=== PATIENT | female | born 1955 | race Caucasian/White ===

== ENCOUNTER → 2022-04-30 | Outpatient (CLI) | payer BC ==
[~2022-04-30] MED LIST: ISOVUE-370 76% 25ML SYRINGE As Ordered ONE
== END ==
LOC: M RAD 15:15
PROVIDERS: ATTEND Nurse Practitioner Family
DX: R07.9 Chest pain, unspecified (principal)
CPT/HCPCS: 71275; Q9967

== ENCOUNTER → 2022-06-24 | Outpatient (CLI) | payer BC, MEDICARE, SELFPAY ==
[2022-06-24 09:35] LABS: HEMATOCRIT 40.2 % (36.0-47.0); HEMOGLOBIN 13.8 g/dl (12.0-15.5); MEAN CORPUSCULAR HEMOGLOBIN 31.4 pg (27.0-33.0); MEAN CORPUSCULAR HGB CONC 34.3 g/dl (32.0-36.5); MEAN CORPUSCULAR VOLUME 91.6 fl (80.0-96.0); PLATELET COUNT, AUTOMATED 266 10^3/uL (150-450); RED BLOOD COUNT 4.39 10^6/uL (4.00-5.40); WHITE BLOOD COUNT 3.8 10^3/uL (4.0-10.0)
[2022-06-24 10:13] LABS: ALT/SGPT 22 U/L (12-78); BILIRUBIN,TOTAL 0.7 MG/DL (0.2-1.0); BLOOD UREA NITROGEN 10 MG/DL (7-18); CALCIUM LEVEL 10.1 MG/DL (8.8-10.2); CARBON DIOXIDE LEVEL 31 MEQ/L (21-32); CHLORIDE LEVEL 102 MEQ/L (98-107); CHOLESTEROL LEVEL 217 MG/DL (<200); CHOLESTEROL RISK RATIO 2.384 (<5); CREATININE FOR GFR 0.55 MG/DL (0.55-1.30); GLOMERULAR FILTRATION RATE > 60.0 (>45); GLUCOSE, FASTING 92 MG/DL (70-100); HDL CHOLESTEROL 91 MG/DL (>40); LDL CHOLESTEROL 112 MG/DL (<100); NON-HDL-C 126 MG/DL; POTASSIUM SERUM 4.6 MEQ/L (3.5-5.1); SODIUM LEVEL 137 MEQ/L (136-145); TOTAL PROTEIN 7.5 GM/DL (6.4-8.2); TRIGLYCERIDES LEVEL 70 MG/DL (<150)
== END ==
LOC: M LAB 08:51
PROVIDERS: ATTEND Nurse Practitioner Family
DX: E78.5 Hyperlipidemia, unspecified (principal); I10 Essential (primary) hypertension

== ENCOUNTER → 2022-07-02 | Outpatient (CLI) | payer MEDICARE | LOC: M WHC 14:21 | PROVIDERS: ATTEND Nurse Practitioner Family | DX: Z12.31 Encounter for screening mammogram for malignant neoplasm of breast (principal) ==

== ENCOUNTER → 2023-07-05 | Outpatient (CLI) | payer MEDICARE | LOC: M WHC 12:48 | PROVIDERS: ATTEND Nurse Practitioner Family | DX: Z12.31 Encounter for screening mammogram for malignant neoplasm of breast (principal); Z98.82 Breast implant status ==

== ENCOUNTER → 2023-08-11 | Outpatient (CLI) | payer MEDICARE | LOC: M WUC 09:28 | PROVIDERS: ATTEND Nurse Practitioner Family | DX: R05.1 Acute cough (principal) ==

== ENCOUNTER → 2024-04-26 | Outpatient (CLI) | payer MEDICARE | LOC: M WHC 14:22 | PROVIDERS: ATTEND Nurse Practitioner Family | DX: N63.15 Unspecified lump in the right breast, overlapping quadrants (principal); N63.21 Unspecified lump in the left breast, upper outer quadrant | CPT/HCPCS: 76642; 77066; G0279 ==

== ENCOUNTER → 2025-01-03 | Outpatient (CLI) | payer MEDICARE ==
[2025-01-03 11:15] LABS: BASO % 0.2 % (0.0-1.0); EOS # 0.1 10^3/uL (0.0-0.5); EOS % 1.3 % (0.0-3.0); HEMATOCRIT 39.5 % (36.0-47.0); HEMOGLOBIN 13.4 g/dl (12.0-15.5); LYMPH # 1.1 10^3/uL (1.5-5.0); LYMPH % 25.6 % (24.0-44.0); MEAN CORPUSCULAR HEMOGLOBIN 31.6 pg (27.0-33.0); MEAN CORPUSCULAR HGB CONC 33.9 g/dl (32.0-36.5); MEAN CORPUSCULAR VOLUME 93.2 fl (80.0-96.0); MONO # 0.6 10^3/uL (0.0-0.8); NEUTROPHILS # 2.7 10^3/uL (1.5-8.5); NEUTROPHILS % 59.7 % (36.0-66.0); PLATELET COUNT, AUTOMATED 210 10^3/uL (150-450); RED BLOOD COUNT 4.24 10^6/uL (4.00-5.40); WHITE BLOOD COUNT 4.5 10^3/uL (4.0-10.0)
[2025-01-03 11:54] LABS: CPK CREATINE PHOSPHOKINASE 60 U/L (34-145)
[2025-01-03 11:55] LABS: ALBUMIN 3.8 G/DL (3.2-5.2); ALKALINE PHOSPHATASE 73 U/L (35-104); ALT/SGPT 24 U/L (7.0-40); AST/SGOT 30 U/L (<34); BILIRUBIN,TOTAL 0.9 MG/DL (0.3-1.2); BLOOD UREA NITROGEN 13 MG/DL (9-23); CALCIUM LEVEL 9.4 MG/DL (8.3-10.6); CARBON DIOXIDE LEVEL 33 MMOL/L (20-31); CHLORIDE LEVEL 100 MMOL/L (98-107); CHOLESTEROL LEVEL 176 MG/DL (<200); CHOLESTEROL RISK RATIO 2.02 (<5); CREATININE FOR GFR 0.55 MG/DL (0.55-1.30); GLOMERULAR FILTRATION RATE > 90.0 (>45); GLUCOSE, FASTING 83 MG/DL (74-106); HDL CHOLESTEROL 87.1 MG/DL (>40); LDL CHOLESTEROL 81.5 MG/DL (<100); NON-HDL-C 88.9 MG/DL; POTASSIUM SERUM 4.1 MMOL/L (3.5-5.1); SODIUM LEVEL 143 MMOL/L (136-145); TOTAL PROTEIN 6.9 G/DL (5.7-8.2); TRIGLYCERIDES LEVEL 37 MG/DL (<150)
== END ==
LOC: M LAB 09:15
PROVIDERS: ATTEND Nurse Practitioner Family
DX: E78.5 Hyperlipidemia, unspecified (principal)

== ENCOUNTER → 2025-04-09 | Outpatient (CLI) | payer MEDICARE ==
[2025-04-09 10:10] LABS: BASO # 0.0 10^3/uL (0.0-0.2); BASO % 0.3 % (0.0-1.0); EOS # 0.1 10^3/uL (0.0-0.5); EOS % 1.6 % (0.0-3.0); LYMPH # 1.1 10^3/uL (1.5-5.0); LYMPH % 34.3 % (24.0-44.0); MONO # 0.4 10^3/uL (0.0-0.8); MONO % 12.3 % (2.0-8.0); NEUTROPHILS # 1.6 10^3/uL (1.5-8.5); NEUTROPHILS % 51.5 % (36.0-66.0); PLATELET COUNT, AUTOMATED 221 10^3/uL (150-450)
[2025-04-09 10:41] LABS: CPK CREATINE PHOSPHOKINASE 64 U/L (34-145)
[2025-04-09 10:42] LABS: ALT/SGPT 27 U/L (7.0-40); AST/SGOT 43 U/L (<34); CALCIUM LEVEL 8.5 MG/DL (8.3-10.6); CARBON DIOXIDE LEVEL 31 MMOL/L (20-31); CHLORIDE LEVEL 103 MMOL/L (98-107); CHOLESTEROL LEVEL 198 MG/DL (<200); CHOLESTEROL RISK RATIO 2.06 (<5); CREATININE FOR GFR 0.55 MG/DL (0.55-1.30); GLOMERULAR FILTRATION RATE > 90.0 (>45); LDL CHOLESTEROL 91.2 MG/DL (<100); NON-HDL-C 102.2 MG/DL; POTASSIUM SERUM 4.0 MMOL/L (3.5-5.1); SODIUM LEVEL 146 MMOL/L (136-145); TRIGLYCERIDES LEVEL 55 MG/DL (<150)
[2025-04-09 10:43] LABS: TOTAL 25(OH) VITAMIN D 64.6 NG/ML (20.0-100.0)
== END ==
LOC: M LAB 09:20
PROVIDERS: ATTEND Nurse Practitioner Family
DX: E78.5 Hyperlipidemia, unspecified (principal); E55.9 Vitamin D deficiency, unspecified

== ENCOUNTER → 2025-05-30 | Outpatient (CLI) | payer MEDICARE | LOC: M WHC 10:23 | PROVIDERS: ATTEND Nurse Practitioner Family | DX: R92.8 Other abnormal and inconclusive findings on diagnostic imaging of breast (principal); Z12.31 Encounter for screening mammogram for malignant neoplasm of breast; R92.313 Mammographic fatty tissue density, bilateral breasts; Z98.82 Breast implant status ==

== ENCOUNTER → 2025-07-09 | Outpatient (CLI) | payer MEDICARE ==
[2025-07-09 10:09] LABS: BASO # 0.0 10^3/uL (0.0-0.2); BASO % 0.6 % (0.0-1.0); EOS # 0.1 10^3/uL (0.0-0.5); EOS % 2.3 % (0.0-3.0); LYMPH # 1.2 10^3/uL (1.5-5.0); LYMPH % 33.0 % (24.0-44.0); MONO # 0.4 10^3/uL (0.0-0.8); MONO % 11.1 % (2.0-8.0); NEUTROPHILS # 1.9 10^3/uL (1.5-8.5); NEUTROPHILS % 52.7 % (36.0-66.0); PLATELET COUNT, AUTOMATED 283 10^3/uL (150-450)
[2025-07-09 10:45] LABS: ALT/SGPT 13 U/L (7.0-40); AST/SGOT 27 U/L (<34); CALCIUM LEVEL 9.3 MG/DL (8.3-10.6); CARBON DIOXIDE LEVEL 34 MMOL/L (20-31); CHLORIDE LEVEL 102 MMOL/L (98-107); CHOLESTEROL LEVEL 236 MG/DL (<200); CHOLESTEROL RISK RATIO 2.72 (<5); CPK CREATINE PHOSPHOKINASE 44 U/L (34-145); CREATININE FOR GFR 0.58 MG/DL (0.55-1.30); GLOMERULAR FILTRATION RATE > 90.0 (>45); LDL CHOLESTEROL 136.3 MG/DL (<100); NON-HDL-C 149.5 MG/DL; POTASSIUM SERUM 3.9 MMOL/L (3.5-5.1); SODIUM LEVEL 144 MMOL/L (136-145); TRIGLYCERIDES LEVEL 66 MG/DL (<150)
[2025-07-09 11:10] LABS: TOTAL 25(OH) VITAMIN D 55.5 NG/ML (20.0-100.0)
== END ==
LOC: M LAB 09:10
PROVIDERS: ATTEND Nurse Practitioner Family
DX: E78.5 Hyperlipidemia, unspecified (principal); E55.9 Vitamin D deficiency, unspecified